=== PATIENT | male | born 1990 | race Caucasian/White ===

== ENCOUNTER 2024-07-27 01:22 | Emergency (ER) | payer MEDICAID ==
[~2024-07-27] VITALS: Ht 170.2 cm; Wt 90.7 kg
[2024-07-27] MEDS ORDERED: IBUPROFEN 600 MG TABLET ONE (02:59)
[2024-07-27] MEDS ORDERED: LIDOCAINE 5% (PATCH) 1 EA PATCH TP ONE (02:59)
[2024-07-27] MEDS ORDERED: CYCLOBENZAPRINE 10 MG TABLET ONE (02:59)
[2024-07-27] MEDS: CYCLOBENZAPRINE 10 MG TABLET PO ONE (03:05)
[2024-07-27] MEDS: IBUPROFEN 600 MG TABLET PO ONE (03:05)
[2024-07-27] MEDS: LIDOCAINE 5% (PATCH) 1 EA PATCH TP SCH (03:06)
[2024-07-27] MEDS ORDERED: TIZA4TAB5 PO (04:56)
[2024-07-27 05:00] VITALS: BP 164/101; TEMP 98.1; O2SAT 99
== END 2024-07-27 05:00 | disposition home or self-care (01) ==
LOC: ER 01:29
DX: M54.6 Pain in thoracic spine (principal); M54.59 Other low back pain; V89.2XXA Person injured in unspecified motor-vehicle accident, traffic, initial encounter; Y93.89 Activity, other specified; Y92.415 Exit ramp or entrance ramp of street or highway as the place of occurrence of the external cause; Y99.8 Other external cause status
CPT/HCPCS: 72128-TC; 72131-TC